=== PATIENT | female | born 1995 | race Caucasian/White ===

== ENCOUNTER 2023-03-12 14:27 | Emergency (ER) | payer SELFPAY ==
[~2023-03-12] VITALS: Ht 162.5 cm; Wt 99.8 kg
[~2023-03-12 14:27] MED LIST: BACTRIM DS 8001 TA1 PO; BENTYL10 MG PO; NKHM; PRILOSEC20 MG PO
== END 2023-03-12 15:17 | disposition home or self-care (01) ==
LOC: ED 14:27
DX: M25.561 Pain in right knee (principal)

== ENCOUNTER 2023-05-31 17:43 | Emergency (ER) | payer OTHER ==
[~2023-05-31] VITALS: Ht 162.5 cm; Wt 99.8 kg
[2023-05-31] MEDS ORDERED: CEPHALEXIN500 M1 PO (17:59)
[2023-05-31] MEDS ORDERED: VIBRAMYCIN100 MG PO (17:59)
== END 2023-05-31 18:01 | disposition home or self-care (01) ==
LOC: ED 17:43
DX: L02.416 Cutaneous abscess of left lower limb (principal)

== ENCOUNTER → 2023-06-17 | Outpatient (CLI) | payer OTHER ==
[~2023-06-17] MED LIST changes: +CEPHALEXIN500 M1 PO; +VIBRAMYCIN100 MG PO
== END | disposition home or self-care (01) ==
LOC: MRI 00:30
PROVIDERS: ATTEND Orthopaedic Surgery
DX: S83.211A Bucket-handle tear of medial meniscus, current injury, right knee, initial encounter (principal); S83.241A Other tear of medial meniscus, current injury, right knee, initial encounter; M25.461 Effusion, right knee; M71.21 Synovial cyst of popliteal space [Baker], right knee; X58.XXXA Exposure to other specified factors, initial encounter; Y93.89 Activity, other specified; Y92.89 Other specified places as the place of occurrence of the external cause; Y99.8 Other external cause status

== ENCOUNTER 2023-07-13 13:53 | Emergency (ER) | payer OTHER ==
[~2023-07-13] VITALS: Wt 99.8 kg
[~2023-07-13 13:53] MED LIST changes: +HYDROCODONE-AC1 EAC1 PO; +TYLENOL325 M1 PO
== END 2023-07-13 16:28 | disposition left against medical advice (07) ==
LOC: ED 13:53
DX: R51.9 Headache, unspecified (principal); M25.511 Pain in right shoulder; T74.21XA Adult sexual abuse, confirmed, initial encounter; Z53.21 Procedure and treatment not carried out due to patient leaving prior to being seen by health care provider

== ENCOUNTER → 2024-11-19 | Outpatient (CLI) | payer OTHER ==
[~2024-11-19] MED LIST changes: +MELOXICAM15 MG PO
== END | disposition home or self-care (01) ==
LOC: RESCLI 13:31
PROVIDERS: ATTEND Internal Medicine
DX: R51.9 Headache, unspecified (principal); K92.1 Melena; Z13.1 Encounter for screening for diabetes mellitus; Z13.220 Encounter for screening for lipoid disorders; Z01.30 Encounter for examination of blood pressure without abnormal findings; Z13.29 Encounter for screening for other suspected endocrine disorder; Z98.890 Other specified postprocedural states

== ENCOUNTER → 2024-11-20 | Outpatient (CLI) | payer OTHER ==
[2024-11-20 13:23] LABS: BUN 13 mg/dl (9-23); LDL CHOLESTEROL 126 mg/dL (9-159); SGPT/ALT 18 U/L (5-49)
== END | disposition home or self-care (01) ==
LOC: LAB 12:43
PROVIDERS: Student in an Organized Health Care Education/Training Program; ATTEND Internal Medicine
DX: Z13.1 Encounter for screening for diabetes mellitus (principal); Z01.30 Encounter for examination of blood pressure without abnormal findings; Z13.29 Encounter for screening for other suspected endocrine disorder

== ENCOUNTER → 2024-12-17 | Outpatient (CLI) | payer OTHER ==
[2024-12-17 15:34] LABS: BASO # 0.0 10*3/uL (0.0-0.1); BASO % 0.6 % (0.0-1.0); EOS # 0.2 10*3/uL (0.0-0.4); EOS % 2.5 % (1.0-4.0); MEAN CELL VOLUME 86.9 fl (81.0-99.0); MEAN CORPUSCULAR HGB 28.2 pg (27.0-31.0); MEAN PLATELET VOLUME 9.6 fl (9.6-12.3); MONO # 0.6 10*3/uL (0.1-1.0); MONO % 8.0 % (3.0-9.0); NEUT # 4.3 10*3/uL (2.3-7.9); NEUT % 60.7 % (47.0-73.0); NUCLEATED RED BLOOD CELL 0.0 % (0.0-0.0); NUCLEATED RED BLOOD CELL 0.0 10*3/uL (0.0-0.0); PLATELET COUNT AUTOMATED 283 10*3/uL (130-400); RED CELL DISTRI WIDTH 16.4 % (0-14.5)
== END | disposition home or self-care (01) ==
LOC: RESCLI 00:11 → LAB 02:40
PROVIDERS: Student in an Organized Health Care Education/Training Program; ATTEND Student in an Organized Health Care Education/Training Program
DX: R51.9 Headache, unspecified (principal); K92.1 Melena